=== PATIENT | male | born 1980 ===

== ENCOUNTER 2021-01-31 13:06 | Inpatient (IN) | payer OTHER ==
[~2021-01-31] VITALS: Ht 182.9 cm; Wt 95.7 kg
--- NOTE | 2021-01-31 13:07 | NUR ---
pt bib remsa. pt found seizing by . EMS arrived and pt nsr. pt went into VT and ems started CPR. pt intubated in route and arrived. pt on monitor and EKG comleted. Dr Brizuela at bedside. IO in place LLE. Mx IV started. See code sheet. Pt immediately into VT storm and mutiple defib and cpr rounds. Meds per MD on code sheet.
--- NOTE | 2021-01-31 13:20 | NUR ---
Blood glucose 312.. Dr morrison notified
[2021-01-31] MEDS ORDERED: NOREPINEPHRINE 8 MG in SODIUM CHLORIDE 0.9% 242 ML IV PRN (13:30)
[2021-01-31] MEDS ORDERED: EPINEPHRINE 5 MG in SODIUM CHLORIDE 0.9% 245 ML IV PRN (13:30)
[2021-01-31] MEDS ORDERED: SODIUM BICARB 8.4%, 50ML SYRINGE IVPush ONE ×4 (13:30→14:30)
[2021-01-31] MEDS ORDERED: AMIODARONE 50 MG/ML, 3ML IVPush ONE (13:30)
[2021-01-31 13:35] LABS: MEAN CORPUSCULAR HEMOGLOBIN 31.8 pg (27.5-34.5); MEAN CORPUSCULAR HGB CONC 30.2 g/dL (33.2-36.2); MEAN PLATELET VOLUME 10.1 fL (7.4-10.4); PLATELET COUNT 227 x10^3/uL (130-400); RED BLOOD COUNT 5.27 x10^6/uL (4.38-5.82); RED CELL DISTRIBUTION WIDTH 15.7 % (9.4-14.8)
--- NOTE | 2021-01-31 13:42 | NUR ---
xr delayed. placing og at moment. plan ct.
[2021-01-31] MEDS ORDERED: MIDAZOLAM 1 MG/ML, 2ML ONE ×2 (13:45→14:48)
[2021-01-31] MEDS ORDERED: PROPOFOL 100 ML IV ONE (13:47)
--- NOTE | 2021-01-31 13:51 | NUR ---
[place] [facility] ag results to dr brizuela Addendum: 01/31/21 at 1405 by ANGELA Esteban AVILA results to Dr Brizuela
[2021-01-31 13:52] LABS: ALANINE AMINOTRANSFERASE 661 U/L (12-78); ALBUMIN 4.1 g/dL (3.4-5.0); ANION GAP 28 mmol/L (5-15); CALCIUM 10.1 mg/dL (8.5-10.1); CHLORIDE 100 mmol/L (98-107); CREATININE 1.82 mg/dL (0.7-1.3)
[2021-01-31] MEDS ORDERED: SODIUM BICARB 8.4%, 50ML SYRINGE ONE ×3 (13:54→18:37)
[2021-01-31 13:57] LABS: ALKALINE PHOSPHATASE 81 U/L (45-117); BILIRUBIN,TOTAL 0.5 mg/dL (0.2-1.0); TOTAL PROTEIN 8.2 g/dL (6.4-8.2); TROPONIN I < 0.015 ng/mL (0.000-0.045)
[2021-01-31] MEDS ORDERED: SODIUM BICARBONATE 8.4% 150 MEQ in DEXTROSE 5% 1,000 ML IV SCH ×2 (14:00→14:30)
[2021-01-31] MEDS ORDERED: CALCIUM CHLORIDE 10%, 10ML SYR IVPush ONE ×2 (14:00)
[2021-01-31] MEDS ORDERED: LEVETIRACETAM 1,000 MG in SODIUM CHLORIDE 0.9% 100 ML IV ONE (14:00)
[2021-01-31] MEDS ORDERED: PLEASE ENTER HEIGHT AND WEIGHT MC SCH (14:00)
[2021-01-31] MEDS ORDERED: MIDAZOLAM 1 MG/ML, 2ML IVPush ONE ×3 (14:00→15:30)
[2021-01-31] MEDS ORDERED: MAGNESIUM SULFATE 1 GM/2 ML IVPush ONE (14:00)
[2021-01-31] MEDS ORDERED: EPINEPHRINE 1 MG/ML, 1ML IVPush ONE (14:00)
[2021-01-31] MEDS ORDERED: PLEASE ENTER ALLERGIES MC SCH (14:00)
--- NOTE | 2021-01-31 14:03 | NUR ---
pt to CT on transport vent and SANTOS Hou with pt.
[2021-01-31] MEDS ORDERED: EPINEPHRINE SYRINGE 0.1 MG/ML, 10ML ONE (14:17)
[2021-01-31] MEDS ORDERED: AMIODARONE 50 MG/ML, 3ML ONE ×2 (14:17→18:37)
[2021-01-31] MEDS ORDERED: MAGNESIUM SULFATE 1 GM/2 ML ONE (14:17)
[2021-01-31] MEDS ORDERED: CALCIUM CHLORIDE 10%, 10ML SYR ONE (14:17)
[2021-01-31] MEDS ORDERED: FILTER 0.22 MICRON ONE (14:17)
[2021-01-31 14:24] LABS: BAND#(MANUAL) 0.48 x10^3/uL; BANDS%(MANUAL) 5 % (0-7); LYMPH#(MANUAL) 3.07 x10^3/uL (1-3.4); LYMPHS% (MANUAL) 32 % (22-44); METAMYELOCYTES# (MANUAL) 0.48 x10^3/uL (0-0); METAMYELOCYTES% (MANUAL) 5 % (0-1); MONOS#(MANUAL) 0.19 x10^3/uL (0.3-2.7); MONOS% (MANUAL) 2 % (2-9); MYELOCYTES% (MANUAL) 1 % (0-0); REACTIVE LYMPHS # (MANUAL) 0.19 x10^3/uL (0-0); REACTIVE LYMPHS % (MANUAL) 2 % (0-0); SEG#(MANUAL) 5.09 x10^3/uL (1.8-6.8); SEGS% (MANUAL) 53 % (42-75)
[2021-01-31 14:25] LABS: <PLATELET ESTIMATE> ADEQUATE; <PLT MORPHOLOGY> NORMAL PLT MORPH
--- NOTE | 2021-01-31 14:30 | NUR ---
BREAK RN: PT BACK FROM CT. RT IN ROOM. VS STABLE. FULL STACK SOFTWARE ENGINEER ON. WILL CONTINUE TO MONITOR WHILE PRIMARY RN IS ON BREAK.
[2021-01-31] MEDS: PROPOFOL 100 ML IV PRN ×3 (14:45→22:19)
[2021-01-31] MEDS ORDERED: ONDANSETRON 2MG/ML, 2ML IVPush PRN (15:00)
[2021-01-31] MEDS ORDERED: ACETAMINOPHEN 325 MG TABLET PO PRN (15:00)
[2021-01-31] MEDS ORDERED: LEVETIRACETAM 1,000 MG in SODIUM CHLORIDE 0.9% 100 ML IV SCH (15:00)
[2021-01-31] MEDS ORDERED: ENALAPRILAT 1.25 MG/ML, 2ML IVPush PRN (15:00)
[2021-01-31] MEDS ORDERED: morphine SULFATE 10 MG/ML, 1ML IVPush PRN (15:00)
[2021-01-31] MEDS ORDERED: BISACODYL 10 MG SUPP PR PRN (15:00)
[2021-01-31] MEDS ORDERED: LORazepam 2 MG/ML, 1ML IVPush PRN (15:00)
[2021-01-31] MEDS ORDERED: OXYcodone IR 5MG TABLET PO PRN (15:00)
[2021-01-31] MEDS ORDERED: POLYETHYLENE GLYCOL 17 GM PACKET PO PRN (15:00)
[2021-01-31] MEDS ORDERED: LABETALOL 5MG/ML, 20ML IVPush PRN (15:00)
[2021-01-31] MEDS: SODIUM BICARBONATE 8.4% 150 MEQ in DEXTROSE 5% 1,000 ML IV SCH ×2 (15:00→23:03)
[2021-01-31] MEDS ORDERED: FENTANYL PF 1,000 MCG in SODIUM CHLORIDE 0.9% 80 ML IV PRN (15:30)
--- NOTE | 2021-01-31 15:30 | NUR ---
dr posadas at [facility] observing seizure behavior
[2021-01-31] MEDS: MIDAZOLAM HCL 50 MG in SODIUM CHLORIDE 0.9% 40 ML IV PRN ×2 (15:39→23:00)
--- NOTE | 2021-01-31 15:41 | NUR ---
radial art line started by dr morrison
[2021-01-31] MEDS ORDERED: EPINEPHRINE 10 MG in SODIUM CHLORIDE 0.9% 240 ML IV PRN (16:00)
--- NOTE | 2021-01-31 16:35 | NUR ---
family at bedside and updated on status
--- NOTE | 2021-01-31 16:42 | NUR ---
pt prepped for transport. pt transported on monitor and with rnx2
[2021-01-31 16:47] LABS: MEAN CORPUSCULAR HEMOGLOBIN 31.4 pg (27.5-34.5); MEAN CORPUSCULAR HGB CONC 33.6 g/dL (33.2-36.2); MEAN PLATELET VOLUME 8.7 fL (7.4-10.4); PLATELET COUNT 264 x10^3/uL (130-400); RED BLOOD COUNT 4.91 x10^6/uL (4.38-5.82); RED CELL DISTRIBUTION WIDTH 13.6 % (9.4-14.8)
[2021-01-31 16:53] LABS: ANION GAP 16 mmol/L (5-15); CALCIUM 9.2 mg/dL (8.5-10.1); CHLORIDE 105 mmol/L (98-107); CREATININE 1.87 mg/dL (0.7-1.3); TRIGLYCERIDES 294 mg/dL (50-200)
[2021-01-31 17:08] LABS: BAND#(MANUAL) 1.97 x10^3/uL; BANDS%(MANUAL) 7 % (0-7); LYMPH#(MANUAL) 0.56 x10^3/uL (1-3.4); LYMPHS% (MANUAL) 2 % (22-44); MONOS#(MANUAL) 1.12 x10^3/uL (0.3-2.7); MONOS% (MANUAL) 4 % (2-9); SEG#(MANUAL) 24.45 x10^3/uL (1.8-6.8); SEGS% (MANUAL) 87 % (42-75)
[2021-01-31 17:09] LABS: <PLATELET ESTIMATE> ADEQUATE; <PLT MORPHOLOGY> NORMAL PLT MORPH; <RBC MORPHOLOGY> NORMAL
[2021-01-31 17:19] LABS: GAMMA GLUTAMYL TRANSPEPTIDASE 94 U/L (15-85)
[2021-01-31] MEDS: LORazepam 2 MG/ML, 1ML IVPush PRN (17:34)
[2021-01-31] MEDS: HEPARIN 5,000 UNITS/ML, 1ML SQ SCH (17:38)
[2021-01-31] MEDS: REGULAR INSULIN 100 UNITS in SODIUM CHLORIDE 0.9% 99 ML IV PRN (17:58)
[2021-01-31] MEDS ORDERED: SODIUM PHOSPHATE 20 MMOL in SODIUM CHLORIDE 0.9% 250 ML IVPB PRN (18:00)
[2021-01-31] MEDS: ARTIFICIAL TEARS OINT 3.5 GM EACHEYE SCH (18:00)
[2021-01-31] MEDS ORDERED: MAGNESIUM SULFATE 1 GM in DEXTROSE 5% 100 ML IVPB PRN (18:00)
[2021-01-31] MEDS ORDERED: CALCIUM CHLORIDE 13.6 MEQ in SODIUM CHLORIDE 0.9% 100 ML IVPB PRN (18:00)
[2021-01-31] MEDS ORDERED: POTASSIUM CHLORIDE PMX 100 ML IV ONE (18:00)
[2021-01-31] MEDS ORDERED: VECURONIUM 10 MG IVPush PRN (18:00)
[2021-01-31] MEDS: KSCALE TO 4.0 IV SCH ×2 (18:00→22:00)
[2021-01-31] MEDS: BUSPIRONE 10 MG TABLET NG SCH (18:19)
[2021-01-31 18:21] LABS: MICROSCOPIC AUTO
[2021-01-31 18:27] VITALS: BP 103/73
[2021-01-31 19:26] LABS: AMPHETAMINE SCREEN, URINE Negative (Negative); BARBITURATE SCREEN, URINE Negative (Negative); BENZODIAZEPINE SCREEN, URINE Positive (Negative); CANNABINOID SCREEN, URINE Positive (Negative); COCAINE SCREEN, URINE Negative (Negative); METHADONE SCREEN, URINE Negative (Negative); OPIATE SCREEN, URINE Negative (Negative)
[2021-01-31] MEDS: FAMOTIDINE 20 MG/2 ML IVPush SCH (21:18)
[2021-01-31 21:50] LABS: INTERNATIONAL NORMALIZED RATIO 1.16 (0.93-1.1); PROTHROMBIN TIME 12.3 Seconds (9.6-11.5)
[2021-01-31] MEDS ORDERED: POTASSIUM CHLORIDE 30 MEQ in SODIUM CHLORIDE 0.9% 100 ML IV ONE (22:30)
[2021-02-01] MEDS: KSCALE TO 4.0 IV SCH ×6 (02:00→22:00)
[2021-02-01] MEDS ORDERED: MIDAZOLAM HCL 100 MG in SODIUM CHLORIDE 0.9% 80 ML IV PRN (02:55)
[2021-02-01] MEDS ORDERED: POTASSIUM CHLORIDE PMX 100 ML IV ONE ×3 (03:30→19:00)
[2021-02-01] MEDS: BUSPIRONE 10 MG TABLET NG SCH ×3 (03:39→17:36)
[2021-02-01] MEDS: HEPARIN 5,000 UNITS/ML, 1ML SQ SCH ×3 (03:40→17:37)
[2021-02-01] MEDS: LEVETIRACETAM 500 MG in SODIUM CHLORIDE 0.9% 100 ML IV SCH ×2 (04:02→14:45)
[2021-02-01] MEDS: ARTIFICIAL TEARS OINT 3.5 GM EACHEYE SCH ×3 (04:02→17:37)
[2021-02-01] MEDS: PROPOFOL 100 ML IV PRN ×3 (04:03→17:05)
[2021-02-01 04:44] LABS: MEAN CORPUSCULAR HEMOGLOBIN 31.7 pg (27.5-34.5); MEAN CORPUSCULAR HGB CONC 34.2 g/dL (33.2-36.2); MEAN PLATELET VOLUME 8.8 fL (7.4-10.4); PLATELET COUNT 191 x10^3/uL (130-400); RED BLOOD COUNT 4.91 x10^6/uL (4.38-5.82); RED CELL DISTRIBUTION WIDTH 13.8 % (9.4-14.8)
[2021-02-01 04:49] LABS: ALBUMIN 2.8 g/dL (3.4-5.0); ANION GAP 7 mmol/L (5-15); CALCIUM 8.5 mg/dL (8.5-10.1); CHLORIDE 106 mmol/L (98-107); CREATININE 2.11 mg/dL (0.7-1.3)
[2021-02-01 04:57] LABS: ALANINE AMINOTRANSFERASE 1157 U/L (12-78); ALKALINE PHOSPHATASE 45 U/L (45-117); BILIRUBIN,TOTAL 0.7 mg/dL (0.2-1.0); TOTAL PROTEIN 5.9 g/dL (6.4-8.2)
[2021-02-01 05:51] LABS: <RBC MORPHOLOGY> NORMAL; BAND#(MANUAL) 1.66 x10^3/uL; BANDS%(MANUAL) 7 % (0-7); LYMPH#(MANUAL) 0.71 x10^3/uL (1-3.4); LYMPHS% (MANUAL) 3 % (22-44); MONOS#(MANUAL) 0.95 x10^3/uL (0.3-2.7); MONOS% (MANUAL) 4 % (2-9); SEG#(MANUAL) 20.38 x10^3/uL (1.8-6.8); SEGS% (MANUAL) 86 % (42-75)
[2021-02-01 05:52] LABS: <PLATELET ESTIMATE> ADEQUATE; <PLT MORPHOLOGY> NORMAL PLT MORPH
[2021-02-01] MEDS: REGULAR INSULIN 100 UNITS in SODIUM CHLORIDE 0.9% 99 ML IV PRN (06:12)
[2021-02-01] MEDS: SODIUM BICARBONATE 8.4% 150 MEQ in DEXTROSE 5% 1,000 ML IV SCH (06:12)
[2021-02-01] MEDS ORDERED: SODIUM PHOSPHATE 10 MMOL in SODIUM CHLORIDE 0.9% 500 ML IV ONE (07:00)
[2021-02-01] MEDS: LORazepam 2 MG/ML, 1ML IVPush PRN ×2 (07:18→09:43)
[2021-02-01 07:29] LABS: INTERNATIONAL NORMALIZED RATIO 1.12 (0.93-1.1); PROTHROMBIN TIME 11.9 Seconds (9.6-11.5)
[2021-02-01] MEDS: SODIUM CHLORIDE 0.9% 1,000 ML IV SCH ×2 (07:42→20:59)
[2021-02-01] MEDS: FENTANYL PF 1,000 MCG in SODIUM CHLORIDE 0.9% 80 ML IV PRN (07:50)
[2021-02-01] MEDS: CLINDAMYCIN PMX 600MG/50ML 50 ML IV SCH ×2 (08:02→15:24)
[2021-02-01] MEDS ORDERED: DEXTROSE 50%, 50ML SYRINGE ONE (08:40)
[2021-02-01] MEDS: FAMOTIDINE 20 MG/2 ML IVPush SCH ×2 (08:47→20:59)
[2021-02-01] MEDS: SENNA/DOCUSATE TABLET PO SCH (08:48)
[2021-02-01] MEDS ORDERED: DEXTROSE 50%, 50ML SYRINGE IVPush ONE (09:00)
[2021-02-01] MEDS ORDERED: DEXTROSE 4 GM TAB.CHEW PO PRN (09:00)
[2021-02-01] MEDS ORDERED: GLUCAGON 1 MG IM PRN (09:00)
[2021-02-01] MEDS ORDERED: DEXTROSE 50%, 50ML SYRINGE IVPush PRN (09:00)
[2021-02-01] MEDS: SODIUM CHLORIDE FLUSH 10ML SYR IVF SCH ×2 (09:12→20:59)
[2021-02-01] MEDS ORDERED: POTASSIUM CHLORIDE 30 MEQ in SODIUM CHLORIDE 0.9% 100 ML IV ONE (10:30)
[2021-02-01] MEDS ORDERED: SODIUM CHLORIDE 0.9%, 500ML IVBOLUS ONE (11:30)
[2021-02-02] MEDS: CLINDAMYCIN PMX 600MG/50ML 50 ML IV SCH ×4 (00:21→23:22)
[2021-02-02] MEDS: PROPOFOL 100 ML IV PRN ×6 (00:48→21:19)
[2021-02-02] MEDS: KSCALE TO 4.0 IV SCH ×6 (02:00→22:00)
[2021-02-02] MEDS: ARTIFICIAL TEARS OINT 3.5 GM EACHEYE SCH ×3 (02:09→18:00)
[2021-02-02] MEDS: HEPARIN 5,000 UNITS/ML, 1ML SQ SCH ×3 (02:09→18:00)
[2021-02-02] MEDS: BUSPIRONE 10 MG TABLET NG SCH ×3 (02:09→18:00)
[2021-02-02] MEDS: LEVETIRACETAM 500 MG in SODIUM CHLORIDE 0.9% 100 ML IV SCH ×2 (03:10→15:32)
[2021-02-02 03:34] LABS: MEAN CORPUSCULAR HEMOGLOBIN 31.5 pg (27.5-34.5); MEAN CORPUSCULAR HGB CONC 33.7 g/dL (33.2-36.2); MEAN PLATELET VOLUME 8.9 fL (7.4-10.4); PLATELET COUNT 193 x10^3/uL (130-400); RED BLOOD COUNT 4.76 x10^6/uL (4.38-5.82); RED CELL DISTRIBUTION WIDTH 14.1 % (9.4-14.8)
[2021-02-02 03:42] LABS: ALANINE AMINOTRANSFERASE 865 U/L (12-78); ALBUMIN 2.7 g/dL (3.4-5.0); ANION GAP 7 mmol/L (5-15); CALCIUM 7.9 mg/dL (8.5-10.1); CHLORIDE 109 mmol/L (98-107); CREATININE 3.03 mg/dL (0.7-1.3)
[2021-02-02 03:56] LABS: ALKALINE PHOSPHATASE 48 U/L (45-117); CREATINE KINASE, TOTAL 4198 U/L (39-308); TOTAL PROTEIN 5.8 g/dL (6.4-8.2)
[2021-02-02 04:10] LABS: BAND#(MANUAL) 3.35 x10^3/uL; BANDS%(MANUAL) 14 % (0-7); LYMPH#(MANUAL) 0.24 x10^3/uL (1-3.4); LYMPHS% (MANUAL) 1 % (22-44); METAMYELOCYTES# (MANUAL) 0.24 x10^3/uL (0-0); METAMYELOCYTES% (MANUAL) 1 % (0-1); MONOS#(MANUAL) 0.72 x10^3/uL (0.3-2.7); MONOS% (MANUAL) 3 % (2-9); SEG#(MANUAL) 19.36 x10^3/uL (1.8-6.8); SEGS% (MANUAL) 81 % (42-75)
[2021-02-02 04:11] LABS: <PLATELET ESTIMATE> ADEQUATE; <PLT MORPHOLOGY> NORMAL PLT MORPH; <RBC MORPHOLOGY> NORMAL
[2021-02-02] MEDS: NOREPINEPHRINE 8 MG in SODIUM CHLORIDE 0.9% 242 ML IV PRN ×2 (05:22→18:06)
[2021-02-02] MEDS: FENTANYL PF 1,000 MCG in SODIUM CHLORIDE 0.9% 80 ML IV PRN ×2 (05:29→16:10)
[2021-02-02] MEDS: FAMOTIDINE 20 MG/2 ML IVPush SCH (07:44)
[2021-02-02] MEDS: SENNA/DOCUSATE TABLET PO SCH (07:44)
[2021-02-02] MEDS: SODIUM CHLORIDE FLUSH 10ML SYR IVF SCH ×2 (07:45→23:22)
[2021-02-02] MEDS: LACTATED RINGERS 1,000 ML IV SCH ×2 (09:13→16:10)
[2021-02-03] MEDS: PROPOFOL 100 ML IV PRN ×3 (00:30→05:32)
[2021-02-03] MEDS: LACTATED RINGERS 1,000 ML IV SCH ×2 (01:44→07:50)
[2021-02-03] MEDS: KSCALE TO 4.0 IV SCH ×2 (02:00→05:31)
[2021-02-03] MEDS: HEPARIN 5,000 UNITS/ML, 1ML SQ SCH ×3 (02:52→22:51)
[2021-02-03] MEDS: LEVETIRACETAM 500 MG in SODIUM CHLORIDE 0.9% 100 ML IV SCH ×2 (02:52→15:32)
[2021-02-03] MEDS: ARTIFICIAL TEARS OINT 3.5 GM EACHEYE SCH (02:52)
[2021-02-03 04:54] LABS: MEAN CORPUSCULAR HEMOGLOBIN 32.3 pg (27.5-34.5); MEAN CORPUSCULAR HGB CONC 34.6 g/dL (33.2-36.2); MEAN PLATELET VOLUME 9.3 fL (7.4-10.4); PLATELET COUNT 142 x10^3/uL (130-400); RED BLOOD COUNT 3.83 x10^6/uL (4.38-5.82); RED CELL DISTRIBUTION WIDTH 14.2 % (9.4-14.8)
[2021-02-03 05:03] LABS: ALBUMIN 2.2 g/dL (3.4-5.0); ANION GAP 9 mmol/L (5-15); CALCIUM 7.2 mg/dL (8.5-10.1); CHLORIDE 106 mmol/L (98-107); CREATININE 4.54 mg/dL (0.7-1.3)
[2021-02-03 05:21] LABS: CREATINE KINASE, TOTAL 1850 U/L (39-308)
[2021-02-03] MEDS: FENTANYL PF 1,000 MCG in SODIUM CHLORIDE 0.9% 80 ML IV PRN (05:32)
[2021-02-03 05:44] LABS: <PLATELET ESTIMATE> DECREASED; <PLT MORPHOLOGY> NORMAL PLT MORPH; <RBC MORPHOLOGY> NORMAL; BAND#(MANUAL) 1.03 x10^3/uL; BANDS%(MANUAL) 8 % (0-7); LYMPH#(MANUAL) 1.29 x10^3/uL (1-3.4); LYMPHS% (MANUAL) 10 % (22-44); MONOS#(MANUAL) 0.13 x10^3/uL (0.3-2.7); MONOS% (MANUAL) 1 % (2-9); SEG#(MANUAL) 10.45 x10^3/uL (1.8-6.8); SEGS% (MANUAL) 81 % (42-75)
[2021-02-03] MEDS: FAMOTIDINE 20 MG/2 ML IVPush SCH (07:57)
[2021-02-03] MEDS: SODIUM CHLORIDE FLUSH 10ML SYR IVF SCH ×2 (07:57→22:51)
[2021-02-03] MEDS: CLINDAMYCIN PMX 600MG/50ML 50 ML IV SCH ×2 (07:57→15:32)
[2021-02-03] MEDS: SENNA/DOCUSATE TABLET PO SCH (07:58)
[2021-02-03] MEDS: ACETYLCYSTEINE 20%, 4ML NPPB SCH ×4 (10:00→20:56)
[2021-02-03] MEDS: ALBUTEROL/IPRATROPIUM 2.5MG/0.5MG, 3 ML NPPB SCH ×4 (10:31→22:30)
[2021-02-03] MEDS: ENALAPRILAT 1.25 MG/ML, 2ML IVPush PRN (11:03)
--- NOTE | 2021-02-03 13:33 | NUR ---
Tube Feeds: Vital AF: goal: 70 ml/hr on propofol, 80 ml/hr off propofol Addendum: 02/03/21 at [address] Amended: Links added.
[2021-02-03] MEDS: LABETALOL 5MG/ML, 20ML IVPush PRN (15:39)
[2021-02-04] MEDS: CLINDAMYCIN PMX 600MG/50ML 50 ML IV SCH ×4 (00:42→23:29)
[2021-02-04] MEDS: LABETALOL 5MG/ML, 20ML IVPush PRN ×2 (00:56→04:16)
[2021-02-04] MEDS: ENALAPRILAT 1.25 MG/ML, 2ML IVPush PRN ×2 (01:39→05:10)
[2021-02-04] MEDS: ALBUTEROL/IPRATROPIUM 2.5MG/0.5MG, 3 ML NPPB SCH ×7 (02:25→22:30)
[2021-02-04] MEDS: LEVETIRACETAM 500 MG in SODIUM CHLORIDE 0.9% 100 ML IV SCH (03:31)
[2021-02-04 05:30] LABS: BASOPHILS % (AUTO) 1 % (0-1); EOSINOPHILS % (AUTO) 0 % (1-7); LYMPHOCYTES % (AUTO) 4 % (22-44); MEAN CORPUSCULAR HGB CONC 34.8 g/dL (33.2-36.2); MEAN PLATELET VOLUME 9.2 fL (7.4-10.4); MONOCYTES % (AUTO) 5 % (2-9); NEUTROPHILS % (AUTO) 90 % (42-75); PLATELET COUNT 177 x10^3/uL (130-400); RED BLOOD COUNT 4.28 x10^6/uL (4.38-5.82); RED CELL DISTRIBUTION WIDTH 14.5 % (9.4-14.8)
[2021-02-04 05:42] LABS: ALBUMIN 2.6 g/dL (3.4-5.0); ANION GAP 7 mmol/L (5-15); CALCIUM 8.7 mg/dL (8.5-10.1); CHLORIDE 110 mmol/L (98-107)
[2021-02-04 05:45] LABS: ALANINE AMINOTRANSFERASE 411 U/L (12-78); ALKALINE PHOSPHATASE 69 U/L (45-117); BILIRUBIN,TOTAL 1.1 mg/dL (0.2-1.0); TOTAL PROTEIN 6.9 g/dL (6.4-8.2)
[2021-02-04] MEDS ORDERED: LABETALOL 5MG/ML, 20ML IVPush ONE (06:00)
[2021-02-04] MEDS: METOPROLOL TARTRATE 25 MG TAB PO SCH ×2 (07:52→18:02)
[2021-02-04] MEDS: HEPARIN 5,000 UNITS/ML, 1ML SQ SCH ×3 (07:52→22:18)
[2021-02-04] MEDS: SENNA/DOCUSATE TABLET PO SCH (07:55)
[2021-02-04] MEDS: SODIUM CHLORIDE FLUSH 10ML SYR IVF SCH ×2 (07:56→21:00)
[2021-02-04] MEDS: FAMOTIDINE 20 MG/2 ML IVPush SCH (07:56)
[2021-02-04] MEDS: PROPOFOL 100 ML IV PRN ×4 (08:28→22:22)
[2021-02-04] MEDS: ACETYLCYSTEINE 20%, 4ML NPPB SCH ×2 (09:00→18:45)
[2021-02-04] MEDS: LEVETIRACETAM 1,000 MG in SODIUM CHLORIDE 0.9% 100 ML IV SCH ×2 (10:05→21:04)
[2021-02-04] MEDS ORDERED: D5%-0.45% NACL 1,000 ML IV SCH (12:00)
[2021-02-04] MEDS: D5%-0.45% NACL 1,000 ML IV SCH (12:07)
[2021-02-05] MEDS: ALBUTEROL/IPRATROPIUM 2.5MG/0.5MG, 3 ML NPPB SCH ×3 (02:30→10:00)
[2021-02-05] MEDS: PROPOFOL 100 ML IV PRN ×3 (03:34→11:17)
[2021-02-05 05:48] LABS: BASOPHILS % (AUTO) 0 % (0-1); EOSINOPHILS % (AUTO) 0 % (1-7); LYMPHOCYTES % (AUTO) 8 % (22-44); MEAN CORPUSCULAR HEMOGLOBIN 32.3 pg (27.5-34.5); MEAN PLATELET VOLUME 8.8 fL (7.4-10.4); MONOCYTES % (AUTO) 9 % (2-9); NEUTROPHILS % (AUTO) 82 % (42-75); PLATELET COUNT 174 x10^3/uL (130-400); RED CELL DISTRIBUTION WIDTH 14.8 % (9.4-14.8)
[2021-02-05 06:03] LABS: ANION GAP 6 mmol/L (5-15); CALCIUM 8.8 mg/dL (8.5-10.1); CHLORIDE 114 mmol/L (98-107)
[2021-02-05 06:05] LABS: CREATININE 3.44 mg/dL (0.7-1.3)
[2021-02-05] MEDS: METOPROLOL TARTRATE 25 MG TAB PO SCH (06:17)
[2021-02-05] MEDS: HEPARIN 5,000 UNITS/ML, 1ML SQ SCH (06:18)
[2021-02-05] MEDS: D5%-0.45% NACL 1,000 ML IV SCH (06:23)
[2021-02-05] MEDS: CLINDAMYCIN PMX 600MG/50ML 50 ML IV SCH (07:12)
[2021-02-05] MEDS: ENALAPRILAT 1.25 MG/ML, 2ML IVPush PRN (07:12)
[2021-02-05] MEDS: hydrALAzine 20 MG/ML, 1ML IV PRN ×2 (07:34→09:37)
[2021-02-05] MEDS: ACETYLCYSTEINE 20%, 4ML NPPB SCH (09:00)
[2021-02-05] MEDS: FAMOTIDINE 20 MG/2 ML IVPush SCH (09:05)
[2021-02-05] MEDS: SENNA/DOCUSATE TABLET PO SCH (09:05)
[2021-02-05] MEDS: SODIUM CHLORIDE FLUSH 10ML SYR IVF SCH (09:05)
[2021-02-05] MEDS: LEVETIRACETAM 1,000 MG in SODIUM CHLORIDE 0.9% 100 ML IV SCH (09:53)
[2021-02-05] MEDS: LABETALOL 5MG/ML, 20ML IVPush PRN (10:15)
[2021-02-05] MEDS ORDERED: hydrALAzine 20 MG/ML, 1ML IV PRN (11:30)
[2021-02-05] MEDS ORDERED: ATROPINE OPHTH SOLN 1%, 5ML PO PRN (12:30)
[2021-02-05] MEDS ORDERED: LORazepam 2 MG/ML, 1ML IV ONE (12:30)
[2021-02-05] MEDS ORDERED: MORPHINE SULFATE 4 MG/ML, 1ML IV ONE (12:30)
[2021-02-05] MEDS: morphine SULFATE 10 MG/ML, 1ML IVPush PRN ×2 (13:37→14:07)
[2021-02-05] MEDS: LORazepam 2 MG/ML, 1ML IVPush PRN ×2 (13:37→14:06)
== END 2021-02-05 14:31 | DRG 207 ==
LOC: ED 14:40 → EDBD 14:42 → EDIP 14:42 → CCU 16:54
PROVIDERS: ADMIT Internal Medicine; ATTEND Hospitalist
PROC: 02HV33Z Insertion of Infusion Device into Superior Vena Cava, Percutaneous Approach (ICD-10-PCS; principal; 2021-01-31)
PROC: 5A1955Z Respiratory Ventilation, Greater than 96 Consecutive Hours (ICD-10-PCS; 2021-01-31)
PROC: 03HY32Z Insertion of Monitoring Device into Upper Artery, Percutaneous Approach (ICD-10-PCS; 2021-01-31)
PROC: 5A12012 Performance of Cardiac Output, Single, Manual (ICD-10-PCS; 2021-01-31)
PROC: 5A2204Z Restoration of Cardiac Rhythm, Single (ICD-10-PCS; 2021-01-31)
PROC: 0BH17EZ Insertion of Endotracheal Airway into Trachea, Via Natural or Artificial Opening (ICD-10-PCS; 2021-01-31)
PROC: 0B9F8ZX Drainage of Right Lower Lung Lobe, Via Natural or Artificial Opening Endoscopic, Diagnostic (ICD-10-PCS; 2021-02-01)
DX: J96.01 Acute respiratory failure with hypoxia (principal); G93.41 Metabolic encephalopathy; I21.4 Non-ST elevation (NSTEMI) myocardial infarction; J69.0 Pneumonitis due to inhalation of food and vomit; K72.00 Acute and subacute hepatic failure without coma; N17.0 Acute kidney failure with tubular necrosis; G93.1 Anoxic brain damage, not elsewhere classified; I13.0 Hypertensive heart and chronic kidney disease with heart failure and stage 1 through stage 4 chronic kidney disease, or unspecified chronic kidney disease; I42.9 Cardiomyopathy, unspecified; I47.2 Ventricular tachycardia; I50.20 Unspecified systolic (congestive) heart failure; M62.82 Rhabdomyolysis; Z99.11 Dependence on respirator [ventilator] status; E87.2 Acidosis; G40.901 Epilepsy, unspecified, not intractable, with status epilepticus; I95.9 Hypotension, unspecified; R94.5 Abnormal results of liver function studies; D75.89 Other specified diseases of blood and blood-forming organs; E83.39 Other disorders of phosphorus metabolism; E83.51 Hypocalcemia; E87.6 Hypokalemia; E88.09 Other disorders of plasma-protein metabolism, not elsewhere classified; F12.90 Cannabis use, unspecified, uncomplicated; I45.10 Unspecified right bundle-branch block; I46.2 Cardiac arrest due to underlying cardiac condition; D72.829 Elevated white blood cell count, unspecified; I49.01 Ventricular fibrillation; N18.9 Chronic kidney disease, unspecified; Z51.5 Encounter for palliative care; Z66 Do not resuscitate; Z79.899 Other long term (current) drug therapy; Z82.49 Family history of ischemic heart disease and other diseases of the circulatory system; Z83.3 Family history of diabetes mellitus; Z87.891 Personal history of nicotine dependence; Z91.14 Patient's other noncompliance with medication regimen
CPT/HCPCS: 36415; 36556; 36600; 96374; 96375; 96376; 99291; J7608; 31624; 70450; 71045; 80047; 80048; 80053; 80069; 80307; 81001; 82306; 82330; 82550; 82607; 82803; 82962; 82977; 83036; 83735; 83880; 83970; 84100; 84132; 84443; 84478; 84484; 84550; 85025; 85610; 85730; 87015; 87070; 87081; 87086; 87102; 87116; 87205; 87206; 88108; 88112; 88305; 88312; 93005; 93306; 93356; 94002; 94003; 94640; 95715; 95819; G0378; J0171; J1644; J1815; J1953; J2250; J2704; J3010; J3475; J3480; J7070; J0282; J0360; J2060; J2270; J7030; J7040; J7050; J7120